=== PATIENT | male | born 1980 | race American Indian/Alaskan Native ===

== ENCOUNTER 2016-11-09 11:58 | Emergency (ER) | payer OTHER ==
[2016-11-09] MEDS ORDERED: XYLOCAINE 1%/ EPI 1:100,000 INFILTRATI ONE (12:30)
[2016-11-09] MEDS ORDERED: ZOFRAN IV ONE (12:32)
[2016-11-09] MEDS ORDERED: CLEOCIN 600 MG/50 mL 600 MG/50 ML BAG IV ONE (12:32)
[2016-11-09] MEDS ORDERED: MORPHINE IV ONE (12:32)
[2016-11-09] MEDS ORDERED: TORADOL IV ONE (12:35)
--- NOTE | 2016-11-09 12:51 | XRay Report ---
ROUTINE CHEST, TWO VIEWS: HISTORY: chest pain. The trachea, heart, mediastinal contour, lung gagnon and bony thorax are unremarkable. IMPRESSION: Unremarkable chest x-ray.
[2016-11-09 12:59] LABS: Basophils % (Auto) 0.7 % (0.0-1.8); Eosinophils % (Auto) 2.1 % (0.0-4.3); Hematocrit 42.8 % (35.5-45.6); Hemoglobin 14.7 gm/dl (11.8-15.2); Mean Corpuscular HGB Conc 34 % (32-34); Mean Corpuscular Hemoglobin 30 pg (28-32); Mean Corpuscular Volume 87 fl (84-94); Platelet Count 156 K/mm3 (140-440); Red Blood Count 4.92 M/mm3 (3.65-5.03); Red Cell Distribution Width 13.7 % (13.2-15.2); White Blood Count 8.6 K/mm3 (4.5-11.0)
[2016-11-09] MEDS ORDERED: XYLOCAINE 1%/ EPI 1:100,000 INFILTRATI NR (13:00)
--- NOTE | 2016-11-09 13:03 | Emergency Department Report ---
ED Chest Pain HPI - General Chief Complaint: Chest Pain Stated Complaint: CHEST PAIN Time Seen by Provider: 11/09/16 12:23 Source: patient, EMS Mode of arrival: Stretcher Limitations: Language Barrier - History of Present Illness Initial Comments: 36-year-old male with a past medical history of [id number] diabetes and tobacco use presents to the hospital complaints of chest pain and right arm pain. Patient has had intermittent sternal left and right-sided chest pain for one week. Pain worsened the last 3 hours. Unable to characterize pain. It is constant without aggravating or alleviating factors. Pain rated as 7/10 in intensity. Denies shortness of breath, nausea, vomiting, or diaphoresis. Patient also complains of right upper inner arm redness and pain. Positive cellulitis/abscess to this area. No reports of fevers. Pain worse with palpation. - Related Data Previous Rx's Medication Instructions Recorded Last Taken Type Ibuprofen [Motrin] 800 mg PO Q8HR PRN #30 tablet 11/09/16 Unknown Rx Sulfamethoxazole/Trimethoprim 1 each PO BID #20 tablet 11/09/16 Unknown Rx [Bactrim DS TAB] traMADol [Ultram 50 MG tab] 50 mg PO Q6HR PRN #20 tablet 11/09/16 Unknown Rx Allergies Allergy/AdvReac Type Severity Reaction Status Date / Time No Known Allergies Allergy Unverified 11/09/16 12:19 PATTI score - Patti Score Age > 65: (0) No Aspirin use within the Past 7 Days: (0) No 3 or more CAD Risk Factors: (0) No 2 or more Angina events in past 24 hrs: (1) Yes Known CAD with more than 50% Stenosis: (0) No Elevated Cardiac Markers: (0) No ST Deviation Greater than 0.5mm: (0) No PATTI Score: 1 ED Review of Systems ROS: Stated complaint: CHEST PAIN Other details as noted in HPI Other: Constitutional: No fevers chills Eyes: No eye pain visual changes ENT: No ear pain or throat pain Neck: Denies pain Respiratory: Denies cough wheezing shortness of breath Cardiovascular: Denies palpitations, syncope GI: Denies abdominal pain, nausea, vomiting, diarrhea : Denies dysuria Musculoskeletal: Denies back pain Skin: as per hpi Neurologic: Denies headache, numbness, weakness Psychiatric: Denies suicidal ideation, hallucinations ED Past Medical Hx - Past Medical History Hx Diabetes: Yes - Surgical History Past Surgical History?: No - Family History Family history: CAD/OH (father mi's in his 60's) - Social History Smoking Status: Current Every Day Smoker - Medications Home Medications: Home Medications Medication Instructions Recorded Confirmed Last Taken Type Ibuprofen [Motrin] 800 mg PO Q8HR PRN #30 tablet 11/09/16 Unknown Rx Sulfamethoxazole/Trimethoprim 1 each PO BID #20 tablet 11/09/16 Unknown Rx [Bactrim DS TAB] traMADol [Ultram 50 MG tab] 50 mg PO Q6HR PRN #20 tablet 11/09/16 Unknown Rx ED Physical Exam - General Limitations: Language Barrier - Other Other exam information: General: No limitations, patient is alert in no acute distress Head exam: Atraumatic, normocephalic Eyes exam: Normal appearance ENT: Moist mucous membrane, normal oropharynx Neck exam: Normal inspection, full range of motion, meningismus nontender Respiratory exam: Clear to auscultation bilateral, no w noheezes, rales, crackles Cardiovascular: Normal rate and rhythm, mild left upper chest wall tenderness Abdomen: Soft, nondistended, and nontender, with normal bowel sounds, no rebound, or guarding Extremity: Full range of motion normal inspection no deformity, no calf tenderness or edema Back: Normal Inspection, full range of motion, no tenderness Neurologic: Alert, oriented x3, cranial nerves intact, no motor or sensory deficit Psychiatric: normal affect, normal mood Skin: Right medial upper arm adjacent to her axilla area of erythema, warmth, tenderness. Positive central fluctuance noted. Right axillary lymphadenopathy ED Course Vital Signs 11/09/16 11/09/16 11/09/16 12:11 13:02 15:30 Temperature 98.6 F Pulse Rate 86 78 75 Respiratory 16 16 16 Rate Blood Pressure 125/69 Blood Pressure 125/79 106/57 [Left] O2 Sat by Pulse 100 97 100 Oximetry - Reevaluation(s) Reevaluation #1: 11/09/16 16:49 Patient received INT, morphine, Zofran, clindamycin IV in the ED. Positive improvement in symptoms. - I & D Right Arm Type of Procedure: Simple Site: right medial upper arm Blade Size: 11 I & D Procedure: betadine prep, sterile drapes applied, sterile dressing applied , gauze wick placed ED Medical Decision Making - Lab Data Result diagrams: 11/09/16 12:32 11/09/16 12:32 Lab Results 11/09/16 11/09/16 11/09/16 Range/Units 12:32 12:32 12:36 WBC 8.6 (4.5-11.0) K/mm3 RBC 4.92 (3.65-5.03) M/mm3 Hgb 14.7 (11.8-15.2) gm/dl Hct 42.8 (35.5-45.6) % MCV 87 (84-94) fl MCH 30 (28-32) pg MCHC 34 (32-34) % RDW 13.7 (13.2-15.2) % Plt Count 156 (140-440) K/mm3 Lymph % (Auto) 31.0 (13.4-35.0) % Oliver % (Auto) 5.6 (0.0-7.3) % Eos % (Auto) 2.1 (0.0-4.3) % Baso % (Auto) 0.7 (0.0-1.8) % Lymph # 2.7 (1.2-5.4) K/mm3 Oliver # 0.5 (0.0-0.8) K/mm3 Eos # 0.2 (0.0-0.4) K/mm3 Baso # 0.1 (0.0-0.1) K/mm3 Seg Neutrophils % 60.6 (40.0-70.0) % Seg Neutrophils # 5.2 (1.8-7.7) K/mm3 D-Dimer < 135.00 (0-234) ng/mlDDU Sodium 138 (137-145) mmol/L Potassium 4.2 (3.6-5.0) mmol/L Chloride 100.1 (98-107) mmol/L Carbon Dioxide 22 (22-30) mmol/L Anion Gap 20 mmol/L BUN 10 (9-20) mg/dL Creatinine 0.6 L (0.8-1.5) mg/dL Estimated GFR > 60 ml/min BUN/Creatinine Ratio 16.66 % Glucose 257 H (75-100) mg/dL POC Glucose (70-105) Calcium 8.9 (8.4-10.2) mg/dL Total Creatine Kinase 178 H (55-170) units/L CK-MB (CK-2) 1.8 (0.0-4.0) ng/mL CK-MB (CK-2) Rel Index 1.0 (0-4) Troponin T < 0.010 (0.00-0.029) ng/mL 11/09/16 11/09/16 11/09/16 Range/Units 13:27 14:47 15:10 WBC (4.5-11.0) K/mm3 RBC (3.65-5.03) M/mm3 Hgb (11.8-15.2) gm/dl Hct (35.5-45.6) % MCV (84-94) fl MCH (28-32) pg MCHC (32-34) % RDW (13.2-15.2) % Plt Count (140-440) K/mm3 Lymph % (Auto) (13.4-35.0) % Oliver % (Auto) (0.0-7.3) % Eos % (Auto) (0.0-4.3) % Baso % (Auto) (0.0-1.8) % Lymph # (1.2-5.4) K/mm3 Oliver # (0.0-0.8) K/mm3 Eos # (0.0-0.4) K/mm3 Baso # (0.0-0.1) K/mm3 Seg Neutrophils % (40.0-70.0) % Seg Neutrophils # (1.8-7.7) K/mm3 D-Dimer (0-234) ng/mlDDU Sodium (137-145) mmol/L Potassium (3.6-5.0) mmol/L Chloride (98-107) mmol/L Carbon Dioxide (22-30) mmol/L Anion Gap mmol/L BUN (9-20) mg/dL Creatinine (0.8-1.5) mg/dL Estimated GFR ml/min BUN/Creatinine Ratio % Glucose (75-100) mg/dL POC Glucose 228 H 179 H (70-105) Calcium (8.4-10.2) mg/dL Total Creatine Kinase (55-170) units/L CK-MB (CK-2) (0.0-4.0) ng/mL CK-MB (CK-2) Rel Index (0-4) Troponin T < 0.010 (0.00-0.029) ng/mL - Radiology Data Radiology results: report reviewed (cxr: normal) - Medical Decision Making Patient was considered for admission and Dr. Sosa hospitalist/admitting physician with consultation. Patient has a normal EKG and 2 negative sets of cardiac enzymes and a PATTI score of 1. After his evaluation he elicited a history that patient has been wrestling and pain is reproducible. Patient be discharged to follow-up in 2 days for abscess phone packing removal and evaluation. He will be discharged on medication for pain and antibiotics for cellulitis. Culture was sent - Differential Diagnosis OH, costochondritis, PE, atypical chest pain, cellulitis, abscess Critical Care Time: No Critical care attestation.: If time is entered above; I have spent that time in minutes in the direct care of this critically ill patient, excluding procedure time. ED Disposition Clinical Impression: Chest wall muscle strain, Abscess of right arm, Non-insulin dependent type 2 diabetes mellitus, Cellulitis of right arm Disposition: DISCHARGED TO HOME OR SELFCARE Is pt being admited?: No Condition: Stable Instructions: Diabetes Mellitus Type 2 in Adults (ED), Thoracic Pain (ED), Abscess (ED) Additional Instructions: Take antibiotics as prescribed. Return in 2 days (or follow up with your doctor ) arm wound packing removal and reassessment. Return if symptoms worsen. Prescriptions: Ibuprofen [Motrin] 800 mg PO Q8HR PRN #30 tablet PRN Reason: Pain Sulfamethoxazole/Trimethoprim [Bactrim DS TAB] 1 each PO BID #20 tablet traMADol [Ultram 50 MG tab] 50 mg PO Q6HR PRN #20 tablet PRN Reason: Pain Referrals: [facility] [Provider Group] - 2-3 Days PRIMARY [facility]ARE, [Primary Care Provider] - 2-3 Days Time of Disposition: 17:00
[2016-11-09 13:09] LABS: Creatine Kinase MB 1.8 ng/mL (0.0-4.0)
[2016-11-09 13:10] LABS: BUN/Creatinine Ratio 16.66; Blood Urea Nitrogen 10 mg/dL (9-20); Calcium 8.9 mg/dL (8.4-10.2); Carbon Dioxide 22 mmol/L (22-30); Creatine Kinase 178 units/L (55-170); Glucose 257 mg/dL (75-100)
[2016-11-09] MEDS ORDERED: NACL 0.9% 1000 ML 1,000 ML IV ONE (13:12)
[2016-11-09 13:44] LABS: Anion Gap 20 mmol/L; Chloride 100.1 mmol/L (98-107); Potassium 4.2 mmol/L (3.6-5.0); Sodium 138 mmol/L (137-145)
--- NOTE | 2016-11-09 16:00 | Event Note ---
Date: 11/09/16 Patient evaluated for L side Chest pain. Patient is into sports and wrestling 3 times a week. Localized tenderness 2nd Left ccostochondral jct . EKG Normal Labs reviewed=Glucose levels high. Dx Costochondritis Will review second set of cardiac enzymes- and discharge if labs Nl. NSAIDS-Meloxicam 7.5 mg po q12 Stop wrestling for 2 weeks
[2016-11-09] MEDS ORDERED: BOOSTRIX IM ONE (17:10)
[2016-11-09 18:29] VITALS: BP 110/76
== END 2016-11-09 18:28 | disposition home or self-care (01) ==
LOC: ED 11:58
DX: S29.011A Strain of muscle and tendon of front wall of thorax, initial encounter (principal); L02.413 Cutaneous abscess of right upper limb; E11.9 Type 2 diabetes mellitus without complications; L03.113 Cellulitis of right upper limb; X58.XXXA Exposure to other specified factors, initial encounter; Y93.9 Activity, unspecified; Y99.9 Unspecified external cause status; Y92.9 Unspecified place or not applicable
CPT/HCPCS: 10060; 36415; 71020; 80048; 82550; 82553; 82962; 84484; 85025; 85379; 87076; 87116; 87186; 90471; 90715; 93005; 93010; 96361; 96365; 96375; 99284; J1885; J2270; J2405; J7030; J1815

== ENCOUNTER 2016-11-11 11:03 | Emergency (ER) | payer SELFPAY ==
[2016-11-11 11:24] VITALS: BP 127/84
--- NOTE | 2016-11-11 12:26 | Emergency Department Report ---
Entered by DACIA AKHTAR, acting as scribe for HOWIE ERVIN PA. ED Recheck HPI - General Chief Complaint: Skin/Abscess/Foreign Body Stated Complaint: RT ARM PAIN Time Seen by Provider: 11/11/16 12:04 Source: patient Mode of arrival: Ambulatory Limitations: No Limitations - History of Present Illness Initial Comments: 36 year old male with a PMHx of diabetes mellitus presents to the ED c/o wound recheck that began two days ago. Patient was seen on 11/09/2016 in this ED to have right inner arm abscess lanced and drained. He was prescribe antibiotics, Bactrim BID (#20 pills), and Ibuprofen 800 mg for pain. Denies any current fever , chills, nausea, vomiting, numbness, and tingling. NKDA. MIRANDA Complaint: wound re-check (packing removal) Onset/Timin -: days(s) Initial Visit For: abscess (right inner arm) Returns Today for: wound recheck (packing removal) Symptoms Since Prior Visit: no new symptoms Context: planned re-check Associated Symptoms: denies: fever, chills, chest pain, shortness of breath, nasuea, other (vomiting, numbness, and tinglling) Treatments Prior to Arrival: dressings, other medications (Bactrim antibiotics and Ibuprofen for pain) - Related Data Previous Rx's Medication Instructions Recorded Last Taken Type Ibuprofen [Motrin] 800 mg PO Q8HR PRN #30 tablet 11/09/16 Unknown Rx Sulfamethoxazole/Trimethoprim 1 each PO BID #20 tablet 11/09/16 Unknown Rx [Bactrim DS TAB] metFORMIN [Glucophage] 500 mg PO BID #60 tablet 11/09/16 Unknown Rx traMADol [Ultram 50 MG tab] 50 mg PO Q6HR PRN #20 tablet 11/09/16 Unknown Rx Allergies Allergy/AdvReac Type Severity Reaction Status Date / Time No Known Allergies Allergy Unverified 11/09/16 12:19 ED Review of Systems Comment: All other systems reviewed and negative Constitutional: denies: chills, fever, other (tingling) Respiratory: denies: orthopnea, shortness of breath, SOB with exertion, SOB at rest Cardiovascular: denies: chest pain, dyspnea on exertion, orthopnea Gastrointestinal: denies: nausea, vomiting Neurological: denies: numbness ED Past Medical Hx - Past Medical History Previous Medical History?: Yes Hx Diabetes: Yes - Social History Smoking Status: Current Every Day Smoker Substance Use Type: None - Medications Home Medications: Home Medications Medication Instructions Recorded Confirmed Last Taken Type Ibuprofen [Motrin] 800 mg PO Q8HR PRN #30 tablet 11/09/16 Unknown Rx Sulfamethoxazole/Trimethoprim 1 each PO BID #20 tablet 11/09/16 Unknown Rx [Bactrim DS TAB] metFORMIN [Glucophage] 500 mg PO BID #60 tablet 11/09/16 Unknown Rx traMADol [Ultram 50 MG tab] 50 mg PO Q6HR PRN #20 tablet 11/09/16 Unknown Rx ED Physical Exam - General Limitations: No Limitations General appearance: alert, in no apparent distress - Head Head exam: Present: atraumatic, normocephalic - Eye Eye exam: Present: normal appearance, EOMI Pupils: Present: normal accommodation - ENT ENT exam: Present: normal exam, mucous membranes moist - Neck Neck exam: Present: normal inspection, full ROM - Respiratory Respiratory exam: Present: normal lung sounds bilaterally. Absent: respiratory distress, wheezes, rales, rhonchi, stridor - Cardiovascular Cardiovascular Exam: Present: regular rate, normal rhythm - Extremities Exam Extremities exam: Present: normal inspection, full ROM - Back Exam Back exam: Present: normal inspection, full ROM - Neurological Exam Neurological exam: Present: alert, oriented X3 - Psychiatric Psychiatric exam: Present: normal affect, normal mood - Skin Skin exam: Present: warm, dry, intact, other (no active bleeding, minimal purulent drainage, and no sign of infection from abscess on right inner arm ). Absent: rash ED Course Vital Signs 11/11/16 11:20 Temperature 97.9 F Pulse Rate 94 H Respiratory 20 Rate Blood Pressure 127/84 O2 Sat by Pulse 96 Oximetry ED Recheck MDM - Differential Diagnosis Wound Recheck (packing removal) - Medical Decision Making Patient was evaluated in fast track area of ED by this provider. Patient presented with packing removal from right inner arm abscess that was lanced and drained in this ED on 11/09/2016. Patient is in no acute distress at this time and he will be discharged home. Patient is instructed to continue taking Bactrim antibiotics and Ibuprofen for pain, and follow-up in 3 days to have packing removed for the final time. He is encouraged to return to the emergency room for any worsening symptoms. ED Disposition Clinical Impression: Cellulitis of right arm Disposition: DISCHARGED TO HOME OR SELFCARE Is pt being admited?: No Does the pt Need Aspirin: No Condition: Stable Instructions: Acute Wound Care (ED) Additional Instructions: Please continue with antibiotics and pain medication as prescribed on 2016. Return to the emergency room in 3 days for removal of packing. At that time that should be the only follow-up that you will need. Referrals: PRIMARY CARE, [Primary Care Provider] - 3-5 Days Forms: Work/School Release Form(ED) This documentation as recorded by the GIOVANA harris JASMINE,accurately reflects the service I personally performed and the decisions made by me, HOWIE ERVIN PA.
== END 2016-11-11 12:34 | disposition home or self-care (01) ==
LOC: ED 11:03
DX: Z48.01 Encounter for change or removal of surgical wound dressing (principal); E11.9 Type 2 diabetes mellitus without complications; F17.200 Nicotine dependence, unspecified, uncomplicated